=== PATIENT | male | born 1980 | race Caucasian/White ===

== ENCOUNTER 2022-08-07 22:48 | Emergency (ER) | payer BC, MEDICAID ==
[2022-08-07] MEDS ORDERED: Ketorolac 30 MG/ML SDV IM ONE (23:09)
[2022-08-08 00:57] VITALS: BP 140/100; PULSE 79
== END 2022-08-08 00:50 | disposition home or self-care (01) ==
LOC: FB.ED 22:48
DX: S32.010A Wedge compression fracture of first lumbar vertebra, initial encounter for closed fracture (principal); S32.020A Wedge compression fracture of second lumbar vertebra, initial encounter for closed fracture; W13.2XXA Fall from, out of or through roof, initial encounter
CPT/HCPCS: 72131; 81001; 96372; 99284; J1885